=== PATIENT | male | born 1985 | race Caucasian/White ===

== ENCOUNTER 2022-12-19 06:09 | Day surgery (SDC) | payer BC ==
[2022-12-14 10:14] VITALS: BMI 32.1
[2022-12-14 10:41] LABS: Hemoglobin 15.3 g/dL (13.5-17.5); Mean Corpuscular HGB CONC 33.4 g/dL (32.0-36.0); Mean Corpuscular Hemoglobin 30.9 pg (27.0-33.0); Mean Corpuscular Volume 92.5 fl (81.2-95.1); Mean Platelet Volume 9.7 fl (7.4-10.4); Platelet Count 260 10x3/uL (150-450); Red Blood Cell (RBC) Count 4.95 10x6/uL (4.32-5.72); White Blood Cell (WBC) Count 7.3 10x3/uL (3.5-10.5)
[2022-12-14 11:01] LABS: Anion Gap 14 mmol/L (10-20); BUN (Urea Nitrogen) 15 mg/dL (8.9-20.6); Calc. Creatinine Clearance 171 mL/min (70-130); Calcium 9.4 mg/dL (7.8-10.44); Carbon Dioxide 26 mmol/L (22-29); Chloride 105 mmol/L (98-107); Estimated GFR 106; Glucose 70 mg/dL (70-105); Potassium 4.7 mmol/L (3.5-5.1); Sodium 140 mmol/L (136-145)
[2022-12-14 11:06] LABS: INR-International Normal Ratio 0.9; Prothrombin Time 10.1 sec (9.5-12.1)
[2022-12-19] MEDS ORDERED: Heparin 10,000 UNITS/ 10 ML VIAL ONE (06:47)
[2022-12-19] MEDS ORDERED: Heparin 25,000 units/D5W 500 ML ONE (06:47)
[2022-12-19] MEDS ORDERED: Lidocaine 1% (PF) 30 ML VIAL ONE (07:08)
[2022-12-19] MEDS ORDERED: Midazolam HCl 2 mg/2 ml Vial ONE ×2 (07:28→07:58)
[2022-12-19] MEDS ORDERED: Dexmedetomidine 200 MCG/2 ML VIAL ONE (07:39)
[2022-12-19] MEDS ORDERED: Ketamine In 0.9 % NaCl 50 MG/5 ML SYRINGE ONE (07:39)
[2022-12-19] MEDS ORDERED: Propofol 500 MG/50 ML VIAL ONE ×3 (07:41→09:31)
[2022-12-19] MEDS ORDERED: fentaNYL 50 mcg/mL 1 mL Vial ONE ×3 (07:51→13:09)
[2022-12-19] MEDS ORDERED: Lidocaine 1% PF 5 ML VIAL ONE (07:55)
[2022-12-19] MEDS ORDERED: Ondansetron PF 4 MG/2 ML Vial ONE (07:55)
[2022-12-19] MEDS ORDERED: GLYCOPYRROLATE/PF 0.2 MG/ML VIAL ONE (07:55)
[2022-12-19] MEDS ORDERED: HYDROcodone/Acetaminophen 5/325 mg Tablet ONE (13:08)
== END 2022-12-19 14:32 | disposition home or self-care (01) ==
LOC: SDC 06:09
PROVIDERS: ATTEND Internal Medicine Cardiovascular Disease
PROC: 02583ZZ Destruction of Conduction Mechanism, Percutaneous Approach (ICD-10-PCS; principal; 2022-12-19)
PROC: 02K83ZZ Map Conduction Mechanism, Percutaneous Approach (ICD-10-PCS; principal; 2022-12-19)
PROC: 4A0234Z Measurement of Cardiac Electrical Activity, Percutaneous Approach (ICD-10-PCS; principal; 2022-12-19)
PROC: 4A023FZ Measurement of Cardiac Rhythm, Percutaneous Approach (ICD-10-PCS; principal; 2022-12-19)
DX: I49.3 Ventricular premature depolarization (principal); I47.20 Ventricular tachycardia, unspecified; I50.22 Chronic systolic (congestive) heart failure; I42.8 Other cardiomyopathies; Z79.899 Other long term (current) drug therapy
CPT/HCPCS: 80048; 85027; 85610; 93005; 93621; 93654; C1732; C1760; C1894; C2630; J1644; J2001; J2250; J2405; J2704; J3010; J3490